=== PATIENT | female | born 1990 ===

== ENCOUNTER 2023-07-24 14:54 | Outpatient (CLI) | payer OTHER | END 2023-07-24 16:16 | disposition home or self-care (01) | LOC: PRENATAL 14:54 | PROVIDERS: ATTEND Obstetrics & Gynecology Maternal & Fetal Medicine | DX: O36.80X0 Pregnancy with inconclusive fetal viability, not applicable or unspecified (principal); Z36.9 Encounter for antenatal screening, unspecified; O34.10 Maternal care for benign tumor of corpus uteri, unspecified trimester; Z3A.12 12 weeks gestation of pregnancy ==

== ENCOUNTER 2023-09-17 13:26 | Outpatient (CLI) | payer OTHER | END 2023-09-17 13:28 | disposition home or self-care (01) | LOC: PRENATAL 13:26 | PROVIDERS: ATTEND Obstetrics & Gynecology Maternal & Fetal Medicine | DX: O35.3XX0 Maternal care for (suspected) damage to fetus from viral disease in mother, not applicable or unspecified (principal); O44.00 Complete placenta previa NOS or without hemorrhage, unspecified trimester; O34.10 Maternal care for benign tumor of corpus uteri, unspecified trimester; Z3A.20 20 weeks gestation of pregnancy ==

== ENCOUNTER → 2023-12-06 14:19 | Outpatient (CLI) | payer OTHER | END | disposition home or self-care (01) | LOC: PRENATAL 14:19 | PROVIDERS: ATTEND Obstetrics & Gynecology Maternal & Fetal Medicine | DX: O26.849 Uterine size-date discrepancy, unspecified trimester (principal); O36.8199 Decreased fetal movements, unspecified trimester, other fetus; O34.10 Maternal care for benign tumor of corpus uteri, unspecified trimester; Z3A.32 32 weeks gestation of pregnancy ==

== ENCOUNTER 2024-01-27 09:30 | Inpatient (IN) | payer OTHER ==
[~2024-01-27] VITALS: Ht 167.6 cm; Wt 70.3 kg
[2024-01-27] MEDS ORDERED: AMPICILLIN SODIUM 2,000 MG VIAL ONE (09:46)
[2024-01-27] MEDS ORDERED: AMPICILLIN SODIUM 2,000 MG VIAL IV STA (09:48)
[2024-01-27] MEDS ORDERED: PRENATAL 19 TA1 EAC2 PO (09:50)
[2024-01-27] MEDS ORDERED: IRON325 MG PO (09:50)
[2024-01-27] MEDS ORDERED: FOLIC ACID0.8 M1 PO (09:50)
[2024-01-27] MEDS ORDERED: RINGERS SOLUTION,LACTATED 1,000 ML IV SCH (10:00)
[2024-01-27 11:08] LABS: HEMATOCRIT 36.9 % (36.0-45.00); HEMOGLOBIN 12.3 g/dL (12.0-15.00); MEAN CELL VOLUME 81.4 fL (80.00-100.00); MEAN CORPUSCULAR HEMOGLOBIN 27.2 pg (27.00-32.0); MEAN CORPUSCULAR HGB CONC 33.4 g/dl (32.0-36.0); PH,URINE 6.5 (5.0-8.0); PLATELET COUNT 241 K/uL (150-450); RED BLOOD COUNT 4.54 M/uL (4.00-6.00); RED CELL DISTRIBUTION WIDTH 18.8 % (11.5-14.5); URINE APPEARANCE Clear; URINE BILIRRUBIN Negative (NEGATIVE); URINE BLOOD Negative; URINE COLOR Yellow; URINE GLUCOSE Negative (NEGATIVE); URINE LEUKOCYTE Negative; URINE NITRATE Negative; URINE PROTEIN Negative (NEGATIVE); URINE UROBILINOGEN 0.2 E.U./dl
[2024-01-27 11:09] LABS: URINE BACTERIA 564.4 uL (0.0-1933); URINE EPITHELIAL CELLS 16.9 uL (0.0-38.8); URINE RBC 2.2 uL (0.0-20.8)
[2024-01-27 11:45] LABS: FIBRINOGEN 463 mg/dL (187.0-446.0); INR < 0.93; PARTIAL THROMBOPLASTIN TIME 26.9 SECONDS (22.0-34.0); PROTHROMBIN TIME 9.6 SECONDS (9.0-11.5)
[2024-01-27] MEDS ORDERED: ERYTHROMYCIN BASE 1 GM TUBE OP ONE (12:21)
[2024-01-27] MEDS ORDERED: OXYTOCIN 20 UNITS/1000ML RL PIGGYBAG IV ONE (12:21)
[2024-01-27] MEDS ORDERED: CHLORHEXIDINE GLUCONATE 120 ML BOTTLE TOP ONE (12:21)
[2024-01-27 12:46] LABS: BILIRUBIN TOTAL 0.34 mg/dL (0.3-1.2); CALCIUM 9.3 mg/dL (8.5-10.1); CREATININE SERUM 0.5 mg/dL (0.55-1.02); GFR 141.23; GLOBULINA 3.8 G/DL (2.4-3.5); POTASSIUM 3.88 mEq/L (3.5-5.1); TOTAL PROTEIN 6.8 gm/dL (6.4-8.2)
[2024-01-27] MEDS ORDERED: AMPICILLIN SODIUM 1,000 MG VIAL IV SCH (13:00)
[2024-01-27] MEDS ORDERED: BENZOCAINE/MENTHOL 90 ML BOTTLE TOP SCH (13:55)
[2024-01-27] MEDS ORDERED: ERYTHROMYCIN BASE 1 GM TUBE OP SCH (14:00)
[2024-01-27] MEDS ORDERED: CHLORHEXIDINE GLUCONATE 120 ML BOTTLE TP SCH (14:00)
[2024-01-27] MEDS ORDERED: LIDOCAINE HCL 1% 200MG/20ML VIAL IJ SCH (14:00)
[2024-01-27] MEDS ORDERED: IBUprofen 800 MG TABLET PO PRN (14:00)
[2024-01-27 14:54] LABS: ABG PH 7.357 (7.35-7.45); ABG PO2 39.4 mmHg (80-100); ABG pCO2 36.3 mmHg (35-45); SaO2 70.6 %
[2024-01-27 14:55] LABS: BASE EXCESS -4.9 mmol/l; BICARBONATE 19.9 mmol/l (23-25); o2 21 %
[2024-01-27] MEDS ORDERED: OXYTOCIN 1,000 ML IV ONE (15:15)
[2024-01-27] MEDS ORDERED: DOCUSATE SODIUM 100MG CAP PO SCH (17:00)
[2024-01-28 06:21] LABS: HEMATOCRIT 31.9 % (36.0-45.00); HEMOGLOBIN 10.6 g/dL (12.0-15.00); MEAN CELL VOLUME 81.5 fL (80.00-100.00); MEAN CORPUSCULAR HEMOGLOBIN 27.1 pg (27.00-32.0); MEAN CORPUSCULAR HGB CONC 33.3 g/dl (32.0-36.0); PLATELET COUNT 229 K/uL (150-450); RED BLOOD COUNT 3.92 M/uL (4.00-6.00); RED CELL DISTRIBUTION WIDTH 18.4 % (11.5-14.5)
[2024-01-29] MEDS ORDERED: NAPR500T14 PO (09:19)
== END 2024-01-29 13:00 | disposition home or self-care (01) | DRG 807 ==
LOC: LDR 09:30 → OB/GYN 09:30 → LDR 10:51 → OB/GYN 17:19
PROVIDERS: ADMIT Student in an Organized Health Care Education/Training Program; ATTEND Student in an Organized Health Care Education/Training Program
PROC: 10E0XZZ Delivery of Products of Conception, External Approach (ICD-10-PCS; principal; 2024-01-27)
PROC: 0KQM0ZZ Repair Perineum Muscle, Open Approach (ICD-10-PCS; 2024-01-27)
PROC: 3E033VJ Introduction of Other Hormone into Peripheral Vein, Percutaneous Approach (ICD-10-PCS; 2024-01-27)
PROC: 4A1HXCZ Monitoring of Products of Conception, Cardiac Rate, External Approach (ICD-10-PCS; 2024-01-27)
DX: O70.1 Second degree perineal laceration during delivery (principal); Z37.0 Single live birth; O99.824 Streptococcus B carrier state complicating childbirth; Z3A.39 39 weeks gestation of pregnancy; Z20.822 Contact with and (suspected) exposure to COVID-19